=== PATIENT | female | born 1930 ===

== ENCOUNTER 2016-12-11 22:36 | Emergency (ER) | payer MEDICARE, MEDICAID, OTHER ==
[~2016-12-11] VITALS: Ht 157.5 cm; Wt 56.8 kg
[~2016-12-11 22:36] MED LIST: ALBU8.5H2 INHALATION; AMLO2.5T PO; AMOX-366 PO; ASPI81TA3 PO; ATEN50TA PO; CLOT30SO TOPICAL; DOCU-41 PO; FLUT16SP NOSTRIL; HYDR25SU7 RC; HYDR45CR TOP; LISI40TA PO; LORA10CA PO; MECL-114 PO; NITR0.4T SL; OMEP20CA11 PO; OXYC-530 PO; POLY17PO6 PO; SOLI5TAB2 PO; Therapeutic Multivit/Minerals PO; Thiamine PO
[2016-12-11 22:55] VITALS: BP 158/66; PULSE 78; RESP 16; O2SAT 96
--- NOTE | 2016-12-11 23:01 | ED.REPORT ---
HPI-Hip/Pelvis Prob/Inj Date of Service Dec 11, 2016 ED Provider: Ernie Hairston MD Pt is a 85 y/o female with a history of recurrent falls, vertigo, dementia, and hypertension who presents to the ED via EMS complaining of hip pain s/p falling onset tonight. She fell off the toilet and landed on her right hip and elbow, then went backward and hit her head. Additional symptoms include right elbow pain. Pt denies loss of consciousness. She recently fell on 11/13/16 on cement and hit her head, but didn't have any intracranial bleeding. Nursing Notes Stated Complaint: GLF Chief Complaint: Multiple Trauma/Fall Nursing Notes Reviewed: Yes Allergies: Coded Allergies: Sulfa (Sulfonamide Antibiotics) (Verified Allergy, Unknown, 12/11/16) hydrochlorothiazide (Verified Allergy, Unknown, 08/08/15) Scheduled ([Therapeutic Multivit/Minerals]) 1 TABLET TABLET 1 TABLET PO DAILY ([Thiamine]) 100 MG TABLET 100 MG PO DAILY Amlodipine (Amlodipine) 2.5 Mg Tablet 2.5 MG PO DAILY Amoxicillin/Clav K 875-125 mg (Augmentin 875-125 mg) 1 Each Tablet 1 TABLET PO BID Aspirin Chew (Aspirin Chew) 81 Mg Chew 81 MG PO DAILY Atenolol (Atenolol) 50 Mg Tablet 75 MG PO BID Clotrimazole 1% (Clotrimazole 1%) 30 Ml Solution 1 APPLIC TOPICAL BID To affected area Fluticasone Propionate (Fluticasone Propionate Nasal) 16 Gm [place].susp 1 SPRAY NOSTRIL DAILY Hydrocortisone Acetate (Hydrocortisone Acetate) 25 Mg Supp.rect 25 MG RC BID Hydrocortisone Butyrate/Emoll (Hydrocort Buty 0.1% Lipo Cream) 45 Gm Cream..g. 1 APPLIC TOP BID Topical on rectum Lisinopril (Lisinopril) 40 Mg Tablet 40 MG PO DAILY Loratadine (Claritin) 10 Mg Capsule 10 MG PO DAILY Omeprazole (Omeprazole) 20 Mg Capsule.dr 20 MG PO DAILY Polyethylene Glycol 3350 (Miralax) 17 Gm Powd.pack 17 GM PO TIDWA Solifenacin Succinate (Vesicare) 5 Mg Tablet 5 MG PO DAILY Scheduled PRN Albuterol HFA (Proair HFA) 8.5 Gm Hfa.aer.ad 2 PUFFS INHALATION Q4H PRN PRN For Shortness of Breath Docusate Sodium (Colace) 100 Mg Capsule 100 MG PO BID PRN PRN For Constipation Nitroglycerin SL (Nitrostat) 0.4 Mg Tab.subl 0.4 MG SL Q5MIN PRN PRN For Chest Pain oxyCODONE (oxyCODONE) 5 Mg Tablet 5 MG PO Q6 PRN PRN For Moderate Pain Miscellaneous Medications Meclizine (Bonine) 25 Mg Tab.chew 25 MG PO General Time Seen by Provider: 23:02 Chief Complaint Hip injury right Hx Obtained From: Patient, Daughter Arrived By: Ambulance Onset Occurred: Just prior to arrival Symptom Duration: Constant Caused by: Fall on ground Quality: Painful Severity: Current: Mild Severity: Maximum: Moderate Recent Healthcare: No recent doctor visit, No recent hospitalization Similar Sx Previous: Yes Past Medical History Past Medical History dysphagia with esophagus tightening pneumonia GI bleed Reports: Asthma, Cancer (colon, uterine, left breast ), GERD, Hypertension Past Surgical History colectomy left breast lumpectomy/radiation Reports: Hysterectomy Smoking History Never Smoker Social History Alcohol Use: 3-5 per day Drug Use: Denies drug use Other Social History: Good social support, Local resident Ambulatory Status Independent Review of Systems Musculoskeletal: Reports: Extremity pain (Right elbow pain), Joint pain (Right hip pain) Neurologic: Denies: Change LOC Complete sys rev & neg: except as marked. Physical Exam Initial Vital Signs Vital Signs (First) Date Time Temp Pulse Resp B/P Pulse Ox O2 Delivery O2 Flow Rate FiO2 12/11/16 22:55 37 78 16 158/66 96 Room Air Initial VS: Reviewed, Vital signs normal Head / Eyes: Atraumatic, Normocephalic Neck: Supple, Full range of motion Skin: Warm, Dry, No cyanosis Neurologic: Alert, Oriented, Nonfocal Psychiatric: Mood/affect normal, Behavior normal, Normal thought content Lower Extremity / Pelvis / MS: Full range of motion, Neurologic intact, Vascular intact Swelling and tenderness over right greater trochanter General/Constitutional: Awake, Alert Respiratory / Chest: Atraumatic, Breath sounds NL, Breath sounds = bilat, No respiratory distress, No chest tenderness Cardiovascular: Heart rate NL, Regular rhythm, Heart sounds NL Abdomen: Soft, Non-tender Upper Extremity / MS: Full range of motion, Neurologic intact, Vascular intact 4x6 multi-part skin tear and abrasion on right elbow Interpretation & Diagnostics Lab Results Interpretation Test 12/11/16 23:10 Urine Color Yellow (YELLOW) Urine Appearance Slightly cloudy Urine pH 6.0 (5.0-8.0) Urine Specific [place] 1.005 (1.003-1.035) Urine Protein Tracemg/dL (NEG,TRACE) Urine Glucose (UA) Negativemg/dL (NEGATIVE) Urine Ketones Negativemg/dL (NEGATIVE) Urine Occult Blood Small (NEGATIVE) Urine Nitrite Negative (NEGATIVE) Urine Bilirubin Negative (NEGATIVE) Urine Urobilinogen Normalmg/dL (NORMAL) Urine Leukocyte Esterase Small (NEGATIVE) Urine RBC 0-2/hpf (0-2) Urine WBC 6-10/hpf (0-5) Urine Epithelial Cells Moderate/hpf (NONE-MOD) Urine Crystals Oxalic acid crystals (NONE Urine Bacteria Moderate/hpf (NONE-FEW) Urine Hyaline Casts None/lpf (NONE) Urine Granular Casts None seen (NONE SEEN) Urine Waxy Casts None seen (NONE SEEN) Urine Red Blood Cell Casts None seen (NONE SEEN) Urine White Blood Cell Casts None seen (NONE SEEN) Urine Mucus None seen (None Seen) Urine Trichomonas None seen (NONE SEEN) Urine Yeast None (NONE SEEN) Urinalysis Comment None Urine Culture Reflexed Indicated Hold Urine Received (Received) X-Ray Interpretation Xray Interpretation: Hip/Pelvis X-Ray: No fracture. Interpretation / Wet Read by: Wet read ED physician Procedures Laceration Management Laceration Management: 4x6 cm multi-part skin tear over right elbow Skin flaps aligned with steri-strips put in place Procedure Performed by: ED physician Consent / Setup / Site Prep: Informed consent provided, Consent from guardian, Time-out performed, Hand hygiene observed, Stand sterile technique Location of Wound: Right elbow Post-Procedure / Complications: Antibiotic oint applied, No complications, Condition improved, Tolerated procedure well, Patient stable Re-Eval/Medical Decision Med Decision/Clinical Course 85-year-old female who fell. She has right hip soreness but is able to move the hip through full range of motion. There is a swollen tender area over the right greater trochanter consistent with a traumatic trochanteric bursitis. X- ray is negative. There is superficial trauma to the right elbow with skin tears which were repaired with Steri-Strips. She also has had some urinary frequency and has 6-10 white cells per high-power field with many bacteria. Culture is pending. We will treat empirically for UTI. Source of Hx: Old records Re-Evaluation/Progress #1: Time of Eval: 00:09 Patient Status: Condition improved Re-Evaluation/Progress Note: Patient rechecked. Discussed x-ray results with patient and patient's mother. Re-Evaluation/Progress #2: Time of Eval: 00:19 Re-Evaluation/Progress Note: Pt rechecked. Looked at abrasion on right elbow. Performed laceration management procedure. Discussed plan for discharge. Patient and patient's caregiver understands and agrees with plan. F/U instructions and RTER warnings given. All questions addressed at this time. Counseled Regarding: Diagnosis, Lab results, Need for follow-up, When/why to return to ED Discharge & Departure Impression: Primary Impression: Fall from ground level Additional Impressions: Trochanteric bursitis, right hip Urinary tract infection Urinary tract infection type: acute cystitis Hematuria presence: without hematuria Qualified Code: N30.00 - Acute cystitis without hematuria Disposition: Home Discharge Condition All VS Reviewed: Yes Condition: Stable Patient Instructions: Fall Prevention for Older Adults (ED) Additional Instructions: The x-ray does not show any fracture. There is bruising and bleeding in the bursa of the right hip (bursitis). Skin tears of the right elbow were realigned with Steri-Strips. Trim the ends of these as they peel off. There is also urinary tract infection, Keflex 500 mg 3 times a day for 10 days, prepack dispensed. Drink plenty of fluids. Referrals: Deborah Saeed MD (PCP) Scribe Attestation Portions of this note were transcribed by Karol Moctezuma. I, Dr. Hairston, personally performed the history, physical exam and medical decision-making; I reviewed and confirmed the accuracy of the information in the transcribed note. copies to: Deborah Saeed MD, Ernie Brian MD Dec 11, 2016 23:01 Karol Moctezuma Dec 11, 2016 23:07
[2016-12-11] MEDS ORDERED: Dexamethasone 20 mg/2 mL Oral Solution PO ONE (23:10)
[2016-12-11 23:28] LABS: APPEARANCE,URINE SLIGHTLY CLOUDY (CLEAR,HAZY); COLOR,URINE YELLOW (YELLOW); OCCULT BLOOD,URINE SMALL (NEGATIVE); UROBILINOGEN,URINE NORMAL (NORMAL)
[2016-12-12 01:00] VITALS: BP 148/68; PULSE 72; RESP 16; O2SAT 97
[2016-12-12] MEDS ORDERED: _Cephalexin 500 mg Capsule PO SCH (08:30)
--- NOTE | 2016-12-12 10:01 | DRSVH ---
PROCEDURE: X-RAY PELVIS W/LAT HIP (RT) ([id number]) INDICATIONS: fall, right hip pain TECHNIQUE: AP pelvis with lateral view(s) of the right hip(s). COMPARISON: [facility], CT, CT ABD PELVIS WO CON, 08/09/2015, 17:14. FINDINGS: Bones: No fractures or dislocations. Pelvic ring appears intact. No suspicious bony lesions. Age- appropriate bony degenerative changes are seen. Soft tissues: The visualized bowel gas pattern is normal. No suspicious soft tissue calcifications. Numerous postoperative clips are seen. IMPRESSION: No displaced fractures are seen on these plain films. If there is point tenderness (or other clinical suspicion for a fracture not seen on these images) pl ease consider a dedicated CT for further evaluation. Dictated by: Colton Glynn M.D. on 12/12/2016 at 9:58 Approved by: Colton Glynn M.D. on 12/12/2016 at 9:59
== END 2016-12-12 01:01 | disposition home or self-care (01) ==
LOC: SED 22:36 → EDBD 22:36 → SED 12-12 01:01
DX: M70.61 Trochanteric bursitis, right hip (principal); S50.311A Abrasion of right elbow, initial encounter; N39.0 Urinary tract infection, site not specified; W18.12XA Fall from or off toilet with subsequent striking against object, initial encounter; Y93.89 Activity, other specified; Y92.012 Bathroom of single-family (private) house as the place of occurrence of the external cause; Y99.8 Other external cause status; M25.521 Pain in right elbow; I10 Essential (primary) hypertension; J45.909 Unspecified asthma, uncomplicated; K21.9 Gastro-esophageal reflux disease without esophagitis; F03.90 Unspecified dementia, unspecified severity, without behavioral disturbance, psychotic disturbance, mood disturbance, and anxiety; Z87.01 Personal history of pneumonia (recurrent); Z85.038 Personal history of other malignant neoplasm of large intestine; Z85.3 Personal history of malignant neoplasm of breast; Z85.42 Personal history of malignant neoplasm of other parts of uterus; Z90.710 Acquired absence of both cervix and uterus; Z90.89 Acquired absence of other organs; Z79.82 Long term (current) use of aspirin; Z88.2 Allergy status to sulfonamides; Z88.8 Allergy status to other drugs, medicaments and biological substances